=== PATIENT | male | born 1940 | race Caucasian/White ===

== ENCOUNTER → 2016-04-20 | Day surgery (SDC) | payer MEDICARE, OTHER ==
--- NOTE | 2016-04-19 14:38 | PCM.ANEPRE ---
Anesthesia Pre-Op Review Anesthesia Recommendations: Proceed with Procedure Additional Comments 75 y/o male with multiple comorbidities including AAA, COPD (2 L NC O2 dependent ), JOSE DE JESUS ? CPAP, paroxysmal A fib, HTN, bladder cancer scheduled for cysto with mitomycin. Cleared by his PCP on 04/01/16 for surgery. Per PCP, nl stress test in 2014 and nl Echo (EF 60%) in 2014. Continue with surgery as planned pending evaluation by DOS anesthesiologist. Neri Sanchez MD Apr 19, 2016 14:38
[~2016-04-20] VITALS: Ht 162.6 cm; Wt 72.0 kg
[2016-04-20] VITALS (16 sets, daily range): BP systolic 95–116; BP diastolic 55–70; PULSE 49–69; RESP 12–20; O2SAT 98–100
[~2016-04-20] MED LIST: ADV100INH IH; ALBU8.5H2 INHALATION; ASPI-973 PO; ATRV10T PO; Albuterol 2.5 mg/3 mL Inhalation Solution NEB ONE; Albuterol 2.5 mg/3 mL Inhalation Solution NEB PRN; Atropine 0.4 mg/mL Inj IVPUSH PRN; Bupiv-Spinal 0.75%/Dex 8.25% 2 mL Inj ONE; CeFAZolin Inj 2 GM in IV Premix 1 EACH IV ONE; CeFAZolin Inj 2 gm / 50mL D5W IV ONE; Chloroprocaine-MPF 2% 20 mL Inj ONE; EPHEDrine Sulfate 50 mg/mL Inj IVPUSH PRN; EPHEDrine/NS 5 mg/mL 5 mL Syringe ONE; HYDROcodone-APAP 5-325 mg Tablet PO PRN; HYDROmorphone 1 mg/mL Inj IVPUSH PRN; IPRA4AER IH; LISI-567 PO; Labetalol 5 mg/mL 4 mL Inj IV PRN; Lactated Ringer's 1,000 ML IV ONE; Lactated Ringer's 1,000 ML IV SCH; Lactated Ringer's 500 ML IV PRN; MAGN27TA2 PO; MetoCLOpramide 5 mg/mL 2 mL Inj IVPUSH PRN; Mitomycin Inj 20 MG in Syringe 1 EACH IRRIGATION ONE; Ondansetron 2 mg/mL 2 mL Inj IVPUSH PRN; Ondansetron 8 mg ODT Tablet PO PRN; Phenylephrine 10,000 mCg/mL Inj IVPUSH PRN; fentaNYL-PF 50 mCg/mL 2 mL Inj IVPUSH PRN; fentaNYL-PF 50 mCg/mL 2 mL Inj ONE; hydrALAZINE 20 mg/mL Inj IVPUSH PRN
[2016-04-20] MEDS: Lactated Ringer's 1,000 ML IV SCH ×2 (12:00→12:20)
--- NOTE | 2016-04-20 12:48 | PCM.HPANE ---
Patient Data Surgeon Admitting Provider: Attending Provider:Mary Ellen Farah MD Primary Care Physician:Jerry Other Provider: Reason for Visit Bladder Tumor Ht/WT & BMI Height (Feet): 5 Height (Inches): 4 Weight (Kilograms): 72.0 Body Mass Index 27.00 Allergies Coded Allergies: No Known Allergies (Verified Allergy, Unknown, 04/19/16) Past Anesthesia History Anesthesia History: Denies:: Anesthesia Reactions Diabetes History Hx Diabetes?: No MRSA MRSA: No Medications Blood Thinner: Aspirin Hypertension Medication: Yes Home Meds Incl Beta Marin: No Reported Medications Albuterol HFA (Proair HFA)8.5 Gm Hfa.aer.ad2 Puffs INHALATION Q4H #1 INHALER 04/19/16 Magnesium Amino Acid Chelate (Magnesium)27 Mg [id number] Mg PO 04/19/16 Lisinopril 20 Mg [id number] Mg PO DAILY 30 Days Ref 0 04/19/16 Albuterol/Ipratropium (Combivent Respimat Inhal [place])120 Spr/4 Gm Inhaler1 Puff IH QID #1 INH Ref 0 04/19/16 Atorvastatin (Lipitor)10 Mg Tab10 Mg PO DAILY Ref 0 04/19/16 Aspirin 81 Mg [id number] Mg PO DAILY Ref 0 04/19/16 Fluticasone/Salmeterol (Advair 100-50 Diskus)60 Puffs/Inh Disk1 Puffs IH BID #1 DISK Ref 0 04/19/16 History History of ENT Problems?: No Denture Type: Full- Upper Full- Lower Hx of Heart Problems?: Yes Cardiovascular History: Positive for:: Abdominal Aortic Aneurism (stable 3.9cm ) Atrial Fibrillation Hypertension Hx of Respiratory Problem?: Yes Respiratory History: Positive for:: COPD Oxygen Administration (continuous O2) Pneumonia (hx of) Use of C-PAP Machine (asked to bring) Use of Inhalers / NEBS Hx Neurologic Problems?: No Hx of GI Problems?: No Hx of Problems?: Yes Genitourinary History: Positive for:: Urinary Tract Infection Other Pertinent History: hematuria bladder mass Male Hx: Denies:: Prostate Problems Scrotal Mass Testicular Surgery Skin History: Denies:: History Skin Disorders? Pressure Ulcers Hx Musculoskeletal Problems?: No Hx of Psycho/Social Problems?: No Hx Surgeries?: Yes (appy) Hx Any Other Health Problems?: Yes Other History: Positive for:: Cancer (bladder) Hx Diabetes: No Hx Alcohol Use: NoHx Substance Use: No Smoking Status: Current Every Day Smoker Have You Smoked inLast 12 mo: YesApprox How Many Cigarettes/day: 3 per day Stop/Bang S-Snoring: Do You Snore Loudly: Yes T-Tired: feel tired, fatigued: No O-Obsered: Observed not breath: No P-Blood Pressure: treated: Yes B- Body Mass Index > 35 kg/m2: No A- Age over 50: Yes N- Neck Large Circumference: No G- Gender Male: Yes JOSE DE JESUS Total Score: 4 JOSE DE JESUS Risk Assessment: High Risk, =/>3 Yes JOSE DE JESUS Category 2: Yes Risk Assessment Category Category 1A: Patient has history of documented sleep apnea, and HAS NOT received any narcotic, sedative or anesthesia administration during this stay. Category 1B: Patient has history of documented sleep apnea, and HAS received any narcotic , sedative or anesthesia administration during this stay Category 2: Patient has SUSPECTED Obstructive Sleep Apnea, and HAS received any narcotic , sedative or anesthesia administration during this stay. Category 3: Patient has SUSPECTED Obstructive Sleep Apnea and HAS NOT received narcotic, sedative or anesthesia administration during this stay. Category 4: Outpatient in Procedural Areas with known sleep apnea or who screen positive for High Risk via the STOP/BANG questionnaire. Exam Exam Vital Signs Vital Signs Date Time Temp Pulse Resp B/P Pulse Ox O2 Delivery O2 Flow Rate FiO2 04/20/16 10:19 Supplement Oxygen 04/20/16 10:18 99 NASAL CANULA POST NEB TX 2 04/20/16 10:14 36.5 69 16 103/70 98 Nasal Cannula 2 General Appearance: Alert, Oriented X3, Cooperative, No Acute Distress HEENT/AIRWAY: MP 2 Lungs: Wheezes (bilateral wheezing, dyspneic at baseline) Heart: Exam Unremarkable, Regular Rate/Rhythm, No Murmurs/Rubs/Gallops Meds/Labs/Diagnostics Admission Meds Current Medications Cefazolin Sodium/ Dextrose 2 gm/ Premix 50 ml @ 100 mls/hr 01 ONCE IV Last administered on 04/20/16t 12:28; Start 04/20/16 at 01:00; Stop 04/20/16 at 01:29; Status DC Lactated Ringer's 1,000 ml @ 120 mls/hr Q8H20M IV Last administered on 12:20; Start 04/20/16 at 05:00; Stop 04/20/16 at 13:19 Mitomycin/Syringe (Mitomycin Inj/ Syringe) 20 ml @ 0 mls/hr ONCE ONCE IRRIGATION Last administered on 04/20/16 12:28; Start 04/20/16 at 10:10; Stop at 10:17; Status DC Albuterol (AccuNeb 2.5 mg/ 3 mL Inh) 2.5 mg STK-MED ONCE NEB Last administered on 04/20/16 10:14; Start 04/20/16 at 10:10; Stop 04/20/16 at 10:11; Status DC Plan Impression Patient chart reviewed, patient interviewed and anesthestic plan with risks, benefits, and alternatives discussed, and informed consent obtained. NPO Status: 04/19/16 AT 1900 ASA Physical Status: ASA3 Severe Disease Anesthetic Plan: SAB Bene/Risks/Altern/Consents: Yes HP Complete Prior to Induction: Yes Neri Fernández MD Apr 20, 2016 12:48
--- NOTE | 2016-04-20 13:32 | PCM.ANEP1 ---
Post Anesthesia Phase 1 PACU Phase 1 Assessment Vital Signs Vital Signs Date Time Temp Pulse Resp B/P Pulse Ox O2 Delivery O2 Flow Rate FiO2 04/20/16 13:28 16 100 04/20/16 13:27 60 16 103/59 100 Nasal Cannula 3 04/20/16 13:20 53 13 98/57 100 Nasal Cannula 3 04/20/16 13:10 36.2 55 16 95/55 99 Simple Mask 8 04/20/16 10:19 Supplement Oxygen 04/20/16 10:18 99 NASAL CANULA POST NEB TX 2 04/20/16 10:14 36.5 69 16 103/70 98 Nasal Cannula 2 Anesthetic Administered: SAB Level of Alertness: Sleepy, easy to arouse ALEX's with Equal Strength: No (residual SAB) Nausea or Vomiting: No Oxygen Delivery: Simple Mask Lungs: Wheezes (bilateral wheezing, dyspneic at baseline) Dermatome Level: T10 (Umbilicus) Neri Fernández MD Apr 20, 2016 13:32
--- NOTE | 2016-04-20 13:35 | PCM.ANEP2 ---
Post Anesthesia Evaluation ASA/CMS Post Anesthesia VS in Patient's Normal Range?: Yes Resp Stable; Airway Patent?: Yes CV Function & Hydration Stable: Yes Mental Status Recovered?: Yes Pain control Satisfactory?: Yes N/V Control Satisfactory?: Yes Neri Fernández MD Apr 20, 2016 13:35
--- NOTE | 2016-04-21 10:07 | OP ---
[address] [address] OPERATIVE REPORT PATIENT: TAO KEYS : 1940 MR#: [id number] ADMIT: 04/20/2016 JOB ID: [id number] DATE OF SURGERY: 04/20/2016 PROCEDURE NAME: 1 Transurethral section of bladder tumor 1-2 cm in size and 2 mitomycin instillation into the bladder. SURGEON: Mary Ellen Farah MD ANESTHESIA: Spinal. ANESTHESIA: Spinal. PREOPERATIVE DIAGNOSIS(ES): 1. Bladder tumor with history of bladder cancer. 2. Speculation COPD POSTOPERATIVE DIAGNOSIS(ES): 1. Bladder tumor with history of bladder cancer. 2. Speculation COPD. INDICATIONS: The patient is a 75-year-old gentleman with a long history of bladder cancer found to have a small 1-2 cm recurrence on the posterior bladder wall, papillary, on apparently a single stalk brought to the operating room for resection of this tumor. PROCEDURE DETAIL: After appropriate informed consent was obtained, the patient was brought to the operating room. Received IV antibiotics prior to onset of procedure. SCDs were placed and adequate spinal anesthesia was induced. She was carefully placed in the dorsal lithotomy position. All pressure points carefully padded. Cleaned, prepped, and draped in the usual sterile fashion. Rigid scope was introduced into the patient's bladder and surveyed systematically with the 30 and the 70 degree lens. This was noted still to be the only lesion. We then used the large cold cup biopsy forceps to grasp the base of the tumor and remove this in approximately three pieces. Down into the muscle, there was moderate hematuria. We then used the resectoscope and the cutting loop to cauterize the base of this. The cauterized area was approximately 2 cm in size and completely clear. There were no other lesions. No other suspicious areas within the bladder. Hemostasis was excellent. Bladder was drained and then we introduced 40 cc of mitomycin C into the patient's bladder and it was allowed to dwell for 30-45 minutes. The patient tolerated this well. The Cooper catheter was clamped with medication inside. He was awakened and taken in stable condition to the postanesthesia care unit. DANII
--- NOTE | 2016-04-22 11:31 | PATH ---
SURGICAL PATHOLOGY Attending Physician:Mary Ellen Farah MD CASE STATUS: Signed Out PATIENT NAME: TAO KEYS PID: [id number] : 1940 DATE COLLECTED:04/20/2016 20:38 SPECIMEN: Bladder, Biopsy CLINICAL HISTORY: BLADDER TUMOR 1). BLADDER TUMOR FINAL DIAGNOSIS: 1.BLADDER TUMOR: LOW-GRADE PAPILLARY UROTHELIAL CARCINOMA. NO EVIDENCE OF LAMINA PROPRIA INVASION. THE MUSCULARIS PROPRIA IS PRESENT AND IS NEGATIVE FOR INVASION. ICD10 CODE C67.9 GROSS DESCRIPTION: The specimen is received in one formalin filled container labeled with the patient's name, sublabeled "bladder tumor" and consists of are 2 booth-emmanuel friable portions of tissue which aggregate to 0.7-0.7 x 0.6 CM. The specimen is entirely submitted in one cassette. 04/20/2016 [facility] MICRO DESCRIPTION: See diagnosis. ICD-9 CODES: CPT CODES: 1: 24810 Electronically Signed Out Shari Allison MD [facility] [address], [place] [address] Technical component performed at [facility], [facility] [address], [address]
== END | disposition home or self-care (01) ==
LOC: SAS 09:29
PROVIDERS: ATTEND Urology
DX: C67.9 Malignant neoplasm of bladder, unspecified (principal); J44.9 Chronic obstructive pulmonary disease, unspecified; I10 Essential (primary) hypertension; I48.91 Unspecified atrial fibrillation; I71.4 Abdominal aortic aneurysm, without rupture; E78.5 Hyperlipidemia, unspecified; N40.0 Benign prostatic hyperplasia without lower urinary tract symptoms; R31.9 Hematuria, unspecified; F17.210 Nicotine dependence, cigarettes, uncomplicated; Z99.81 Dependence on supplemental oxygen; Z79.82 Long term (current) use of aspirin; Z79.51 Long term (current) use of inhaled steroids
CPT/HCPCS: 52235; J0690; J2250; J2400; J3010; J7120; J7613; J9280